=== PATIENT | female | born 1990 | race American Indian/Alaskan Native ===

== ENCOUNTER 2017-10-05 11:23 | Emergency (ER) | payer SELFPAY ==
[2017-10-05 11:43] VITALS: BP 97/57
--- NOTE | 2017-10-05 14:42 | Emergency Department Report ---
Minor Respiratory - HPI Chief Complaint: Sore Throat Stated Complaint: PINK EYE/ THROAT HARD TO TALK Time Seen by Provider: 10/05/17 13:29 Duration: Today Pain Location: Throat Severity: moderate (5/10) Minor Respiratory: Yes Sore Throat (5/10), Yes Able to Tolerate Fluids, No Rhinorrhea, No Ear Pain, No Cough, No Sick Contacts, No Hemoptysis, No Chest Pain, No Shortness of Breath, No Fever Other History: This is a 27-year-old female here reporting that she has sore throat it's been ongoing for 2 days. She reports low-grade fever. Pain is 6/ 10 and achy worse with swallowing. Denies any drooling or difficulty breathing. Denies any nasal congestion runny nose, cough or shortness of breath. Denies any abdominal pain or discomfort. Patient is also reporting that she thinks she has pink eye and she was exposed to this. She said it started off in her right eye notes that her left. She says she woke up this morning and her left eye was crusted and but it started in her right eye last week. Denies any visual changes. She wears glasses. Denies any foreign body sensation in eye. She reports some itching. Denies any pain to eye. Reports that her left eye is red. Denies any trauma to eye. Tetanus vaccine is up-to- date ED Review of Systems ROS: Stated complaint: PINK EYE/ THROAT HARD TO TALK Other details as noted in HPI Constitutional: chills, fever Eyes: eye discharge, other (redness and crusting). denies: eye pain, vision change ENT: throat pain. denies: ear pain, dental pain, epistaxis, congestion Respiratory: denies: cough, shortness of breath, SOB with exertion, SOB at rest , stridor, wheezing Cardiovascular: denies: chest pain, palpitations, edema, syncope Gastrointestinal: denies: abdominal pain, nausea, vomiting, diarrhea Musculoskeletal: denies: back pain, joint swelling, arthralgia Skin: denies: rash, lesions Neurological: denies: headache ED Past Medical Hx - Past Medical History Previous Medical History?: Yes Hx Asthma: Yes Additional medical history: Hearing impaired - Surgical History Past Surgical History?: No - Family History Family history: hypertension - Social History Smoking Status: Never Smoker Substance Use Type: None - Medications Home Medications: Home Medications Medication Instructions Recorded Confirmed Last Taken Type ALBUTEROL Inhaler [ProAir HFA 2 puff IH QID PRN #1 unit 12/14/12 Unknown Rx Inhaler] Azithromycin [Zithromax] 500 mg PO QDAY #5 tablet 12/14/12 Unknown Rx Prednisone 60 mg PO QDAY #3 day 12/14/12 Unknown Rx Gentamicin 0.3% Ophth Soln 2 drops OS Q4H 7 Days #1 bottle 10/05/17 Unknown Rx Ibuprofen [Motrin] 600 mg PO Q8H PRN #12 tablet 10/05/17 Unknown Rx Penicillin V Potassium 500 mg PO Q8H 10 Days #30 tablet 10/05/17 Unknown Rx Minor Respiratory Exam - Exam General: Vital signs noted. No distress. Alert and acting appropriately. This is a 27-year-old female well-nourished well-developed in no acute distress. HEENT: Yes Pharyngeal Erythema, Yes Pharyngeal Exudates, Yes Moist Mucous Membranes (uvula midline and oral airways patent), Yes Conjuctival Injection ( left conjunctiva injected, bilateral EOMI, visual acuity 20/40 OS, 20/30 both eyes and 20/30 OD. Normal accommodation.), No Rhinorrhea, No Frontal Tenderness , No Maxillary Tenderness Ear: Neither TM Bulge, Neither TM Erythema, Neither EAC Pain, Neither EAC Discharge Neck: Yes Adenopathy (bilateral anterior cervical adenopathy), No Supple (full range of motion) Lungs: Yes Good Air Exchange (CTAB), No Wheezes, No Ronchi, No Stridor, No Cough , No Labored Respirations, No Retractions, No Use of Accessory Muscles, No Other Abnormal Lung Sounds Heart: Yes Regular (S1 S2.), No Murmur Abdomen: Yes Normal Bowel Sounds (normal bowel sounds in all quadrants), No Tenderness (nontender to palpate in all quadrants), No Peritoneal Signs Skin: No Rash, No Edema Neurologic: Alert and oriented, no deficits. Musculoskeletal: Unremarkable. ED Course Vital Signs 10/05/17 11:40 Temperature 99.0 F Pulse Rate 78 Respiratory 16 Rate Blood Pressure 97/57 O2 Sat by Pulse 99 Oximetry - Reevaluation(s) Reevaluation #1: 10/05/17 14:47 Patient stable throughout ED course ED Medical Decision Making - Medical Decision Making This is a 27-year-old female here reports that she has sore throats but white spots on the back of her throat. She denies any drooling or difficulty breathing or swallowing. She reports low-grade fever. She is also reporting that she has pinkeye through left eye and it started in her right eye which she said is better but still red. Patient is here to be evaluated and She was evaluated and examined by myself. She was found to have injected conjunctiva left eye, bilateral EOM intact, bilateral pupils equal and reactive to light, visual acuity OD 20/30, OS 20/40 and both eyes 20/30. She has crusts then to her eye with drainage. Patient also with exudative pharyngitis and based on Centor criteria with exudates oropharynx, erythema, cervical adenopathy with absence of cough patient will be treated for strep throat. I discussed with the patient and she voiced understanding. Patient is stable, vital signs are stable afebrile. She is nontoxic in appearance. Patient with left conjunctivitis, exudative pharyngitis. discharged home with prescription for penicillin VK for exudative pharyngitis and gentamicin ophthalmic for left conjunctivitis. Pt educated on diagnosis, treatment plan, medication and needs to follow-up also and also I discussed headh and hygieneand she voiced understanding Patient discharged home in stable condition with prescription for gentamicin ophthalmic, Motrin and penicillin VK and I discussed cessation is to follow up with her primary care physician in 2 days if she does not have a primary care physician she needs to follow up at [facility]. Critical care attestation.: If time is entered above; I have spent that time in minutes in the direct care of this critically ill patient, excluding procedure time. ED Disposition Clinical Impression: Exudative pharyngitis Conjunctivitis, left eye Qualifiers: Conjunctivitis type: acute Acute conjunctivitis type: bacterial Qualified Code( s): H10.32 - Unspecified acute conjunctivitis, left eye Disposition: [id number] TO HOME OR SELFCARE Is pt being admited?: No Does the pt Need Aspirin: No Condition: Stable Instructions: Conjunctivitis (ED), Strep Throat (ED) Additional Instructions: Please gargle warm salt water Increasing fluid intake Practice good hand hygiene Take Medication as prescribed Follow up with Primary care physician and if he do not have a primary care physician follow-up at [facility] in 2 days Prescriptions: Gentamicin 0.3% Ophth Soln 2 drops OS Q4H 7 Days #1 bottle Ibuprofen [Motrin] 600 mg PO Q8H PRN #12 tablet PRN Reason: Pain Penicillin V Potassium 500 mg PO Q8H 10 Days #30 tablet Referrals: PRIMARY CARE, [Primary Care Provider] - 10/07/17 [facility] [Outside] - 10/07/17 Forms: Work/School Release Form(ED)
== END 2017-10-05 15:10 | disposition home or self-care (01) ==
LOC: ED 11:23
DX: J02.9 Acute pharyngitis, unspecified (principal); H10.32 Unspecified acute conjunctivitis, left eye; J45.909 Unspecified asthma, uncomplicated
CPT/HCPCS: 99282